=== PATIENT | male | born 1970 | race Caucasian/White ===

== ENCOUNTER 2019-06-15 16:02 | Emergency (ER) | payer MEDICAID, SELFPAY ==
[2019-06-15 16:03] VITALS: BP 121/71; PULSE 123; RESP 20; TEMP 36.2; O2SAT 97; BMI 55.8
--- NOTE | 2019-06-15 16:14 | ED.VIS.GEN ---
History of Present Illness Chief Complaint: Laceration Onset: Today Narrative: Patient presents to the ED with laceration to the medial aspect of his right ankle. About 45 minutes prior to arrival he was attempting to make a tool with a multifocal button grinder when part of it broke off and fell into his sock. He did wrap the laceration prior to arrival. Tetanus status is unknown. He denies any other injury. Past Medical History - Allergies and Home Meds Allergies/Adverse Reactions: Allergies Penicillins Allergy (Verified 06/15/19 16:02) Hives Primary Care Physician: Jordan Castellanos MD [Primary Care Provider] - Smoking Status: Never smoker Review of Systems General: Denies: Chills, Fever, Sweats Eyes: Denies: Visual changes - bilaterally, Diplopia ENT: Denies: Rhinorrhea, Sore throat Cardiovascular: Denies: Chest pain, Palpitations Respiratory: Denies: Dyspnea, Cough, Dyspnea on exertion Gastrointestinal: Denies: Abdominal pain, Nausea, Vomiting, Diarrhea, Melena, Hematochezia Genitourinary: Denies: Dysuria, Hematuria, Frequency Musculoskeletal: Denies: Back pain, Extremity Pain Skin: Reports: Wounds. Denies: Rash Neurological: Denies: Headache, Weakness, Numbness Physical Exam Vital Signs/Narrative: Vital Signs Temp Pulse Resp BP Pulse Ox 06/15/19 16:03 97.2 F L 123 H 20 H 121/71 H 97 General: Well nourished, Well developed, No Acute Distress Head: Normocephalic, Atraumatic Eyes: Perrl, EOMI ENT: Moist mucous membranes, No rhinorrhea Neck: Supple, Nontender Cardiovascular: Regular rate, Regular rhythm, No murmurs Respiratory: No distress, CTA bilaterally, Chest nontender Abdomen: Soft, Nontender, Nondistended, Normal bowel sounds Back: Nontender, Normal Inspection Extremities: Nontender, No edema Skin: Normal color, No rash, - - There is a vertical laceration to the medial aspect of the right ankle. Several flecks of metal dust within the wound. Slow bleeding. Superficial abrasion noted just proximal to the laceration. Full right ankle and foot range of motion. DP and PT pulses 2+ normal capillary refill. Normal sensation. Neurological: Alert, Oriented x3, Cranial nerves II-XII grossly intact, Normal Strength, Normal Sensation Psychological: Normal affect, Normal Mood Diagnostic/Tx/Re-eval - Medical Decision Making Patient presents to the ED with 4 cm laceration to his right ankle that occurred 45 minutes prior to arrival. No active bleeding. There are small flecks of metal dust in the wound. After reviewing with patient, suture repair was elected. Tetanus was updated. Procedure note: Area was cleansed with Betadine. 1% lidocaine with epinephrine was locally infiltrated into the wound. Approximately 8 mL. Wound was copiously irrigated with normal saline and foreign bodies were removed. Laceration was repaired with 4-0 nylon suture. 5 sutures were placed. Patient tolerated procedure well. Patient was taken on proper wound care. He was educated on when to have sutures removed. Vascular symptoms to return to the ED. He is provided discharge instructions. He is agreeable to plan. Impression: Right distal lower extremity laceration. Disposition: Home stable ED Disposition - Plan for ED Patient: Disposition: Home or Assisted Living Diagnosis: Laceration Instructions: LACERATION, All Referrals: Jordan Castellanos MD [Primary Care Provider] -
[2019-06-15] MEDS: Diphth,Pertuss(Acell),Tet Vac 0.5 ML Vial IM (17:24)
== END 2019-06-15 17:35 | disposition home or self-care (01) ==
PROVIDERS: Emergency Provider Physician Assistant; Family Provider Family Medicine; PCP Family Medicine
DX: S91.021A Laceration with foreign body, right ankle, initial encounter (principal); S90.511A Abrasion, right ankle, initial encounter; X58.XXXA Exposure to other specified factors, initial encounter; Y93.9 Activity, unspecified; Y92.9 Unspecified place or not applicable
CPT/HCPCS: 12002; 90471; 90715; 99283

== ENCOUNTER 2019-07-27 08:20 | Outpatient (RCR) | payer MEDICAID, SELFPAY ==
[2019-07-27 08:32] VITALS: TEMP 36.6; BMI 55.8
--- NOTE | 2019-07-27 10:30 | HP.PCM_ITS ---
(1) Dehiscence of surgical wound Status: Acute Current Visit: Yes Code(s): T81.31XA - Disruption of external operation (surgical) wound, not elsewhere classified, initial encounter (2) Traumatic open wound of right lower leg with delayed healing Status: Acute Current Visit: Yes Code(s): S81.801D - Unspecified open wound, right lower leg, subsequent encounter History of Present Illness Date of Service: 07/27/19 Chief Complaint: Follow-up dehisced wound right ankle History of Wound: 49-year-old white male that was working in his garage using a grinder set up operator and it caught his right lower ankle and caused a rather large laceration on 06/15/2019. Seen in the emergency room and had stitches but the wound dehisced and has had an open area ever since. History of infection was treated with antibiotics we will recheck today. Past Medical History Past Medical History: Laceration to right lower leg nonhealing dehisced wound Allergies/Adverse Reactions: Allergies Penicillins Allergy (Verified 06/15/19 16:02) Hives Home Medications: Ambulatory Orders Medication Instructions Recorded Albuterol IH (ProAir) [Proair Hfa] 2 puff INHALATION Q4H PRN PRN 12/07/13 Beclomethasone Diprop Inhaler 1 puff INHALATION BID 12/07/13 [Qvar 80 Mcg Inhaler] Cetirizine HCl [Zyrtec] 10 mg PO DAILY 12/07/13 Diclofenac [Voltaren] 75 mg PO BIDCM 12/07/13 Fluticasone 0.05% [Flonase Nasal 2 spray NASAL DAILY 12/07/13 [place]] Hydrocodone/Acetaminophen 1 each PO TID PRN PRN 12/07/13 [Hydrocodon-Acetaminophn 10-325] Lisinopril/Hydrochlorothiazide 1 tablet PO DAILY 12/07/13 [Zestoretic 20/25 Tablet] Omeprazole [Prilosec] 20 mg PO DAILY 12/07/13 Vitamin C 500 mg PO DAILY 12/07/13 Lives: Spouse/ Significant Other Smoking Status: Never smoker Review of Systems Constitutional: Denies: Chills, Fever Eyes: Denies: Blurred vision, Drainage, Pain HEENT: Denies: Difficulty Hearing, Difficulty Swallowing, Sore Throat, Visual Changes Cardiovascular: Denies: Chest Pain, Palpitations, Syncope Respiratory: Denies: Cough, Shortness of Breath Gastrointestinal: Denies: Abdominal Pain, Nausea, Vomiting Genitourinary: Denies: Dysuria, Frequency Musculoskeletal: Denies: Joint Pain, Muscle pain Skin: Reports: - - Right ankle dehisced wound. Denies: Jaundice, Rash Neurological: Denies: Balance problems, Change in Speech, Difficulty swallowing, Focal weakness Psychiatric: Denies: Anxiety, Depression Endocrine: Denies: Change in Body Habitus Hematologic/ Lymphatic: Denies: Adenopathy - Physical Exam Vital Signs Temp 97.8 F 07/27/19 08:32 General: Oriented x3, Cooperative, Well developed HEENT: Atraumatic, PERRLA Oral: Moist Mucosa Neck: Supple, No JVD Lungs: Clear to auscultation, Normal air movement Cardiovascular: Regular rate, Regular Rhythm Abdomen: Bowel Sounds Present, Soft, Non Tender, No Hepato-splenomegaly Extremities: No clubbing, No edema Skin: Ulcer/ Wound Wound Measurements and Assessment WC - Nurse 1 - General Ulcer Measurement Start: 07/27/19 08:23 Freq: Status: Active Protocol: Activity Type Activity Date Activity User E-Sign Co-Sign Detail Recorded Client Recorded Date Recorded By Document 07/27/19 08:32 DV [id number] 07/27/19 09:04 DV 07/27/19 08:32 Wound Center Nurse 1 [Ulcer Assessment] #1 Medial RLE -Combined with other wound No -Current Size (cm) - Length 3.0 -Current Size (cm) - Width 0.7 -Current Size (cm) - Depth 0.4 -Total Square Cm 2.10 -Date of Last Picture (Recall this 07/27/19 field) -Photo Taken Yes -Epithelialization None Present -Tunneling No -Undermining/Tunneling No -Circular Undermining No -Classification - Thickness Full Thickness without Exposed Support Structure -Exudate Amt Medium -Exudate Type Serous -Wound Margin Indistinct, Non -Visible -Granulation Amt None Present (0 %) -Granulation Quality N/A -Slough/Fibrin Yes -Necrosis Amt Large (67-100%) -Necrotic Tissue Type Eschar -Structure Exposed None/Limited to Skin Breakdown -Texture (Joselyn-wound Skin Appearance) Assessed, Scarring -Moisture (Joselyn-wound Skin Appearance Assessed,Dry/ ) Scaly -Color (Joselyn-wound Skin Appearance) Assessed, Erythema -Temperature (Joselyn-wound Skin No Abnormality Appearance) (Pt Warm) -Tenderness on Palpation (Joselyn-wound No Skin Appearance) -Ulcer Cleansing soap -Foul Odor after Cleansing No -Anesthetic Used 5% Lidocaine Gel [Edema Assessment] -Lower Limb Edema Present No -Right Calf (cm) 5.0 -Right Ankle (cm) 28.6 WC - Nurse 2 - General Ulcer CM Notes Start: 07/27/19 08:23 Freq: Status: Active Protocol: Activity Type Activity Date Activity User E-Sign Co-Sign Detail Recorded Client Recorded Date Recorded By Document 07/27/19 09:22 MW [id number] 07/27/19 09:27 MW 07/27/19 09:22 Wound Center Nurse 2 [Procedure/Treatment] #1 Medial RLE -Time 09:23 -Correct Patient Yes -Correct Side, Site, Position Yes -Correct Procedure Yes -Procedure Performed Yes -Type of Procedure Debridement -Clinical Debridement Subcutaneous -Post Debridement Size (cm) - Length 0.9 -Post Debridement Size (cm) - Width 0.4 -Post Debridement Size (cm) - Depth 0.5 -Total Square Cm 0.36 -Wound/Ulcer Outcome Not Healed -Ulcer Cleansing Rinsed/ Irrigated with Saline -Foul Odor after Cleansing No -Bioengineered Tissue No -Bleeding Controlled with Pressure -Offloading No -Treatment Response Procedure Tolerated Well [See Physician Procedure note for Specifics] Pain Scale: 0-10 Numeric [Pain] -Is Patient Pain Free? Yes Musculoskeletal: No Tenderness to Palpation of Joints or Extremities Lymphatic: No Cervical, Supraclavicular, or Inguinal Adenopathy Neurological: Cranial nerves II-XII grossly intact, Neuro grossly intact Psych/Mental Status: Normal Affect, Appropriate Debridement Note Post-Debridement Measurements/Treatment WC - Nurse 2 - General Ulcer CM Notes Start: 07/27/19 08:23 Freq: Status: Active Protocol: Activity Type Activity Date Activity User E-Sign Co-Sign Detail Recorded Client Recorded Date Recorded By Document 07/27/19 09:22 MW [id number] 07/27/19 09:27 MW 07/27/19 09:22 Wound Center Nurse 2 #1 Medial RLE -Time 09:23 -Correct Patient Yes -Correct Side, Site, Position Yes -Correct Procedure Yes -Procedure Performed Yes -Type of Procedure Debridement -Clinical Debridement Subcutaneous -Post Debridement Size (cm) - Length 0.9 -Post Debridement Size (cm) - Width 0.4 -Post Debridement Size (cm) - Depth 0.5 -Total Square Cm 0.36 -Wound/Ulcer Outcome Not Healed -Ulcer Cleansing Rinsed/ Irrigated with Saline -Foul Odor after Cleansing No -Bioengineered Tissue No -Bleeding Controlled with Pressure -Offloading No -Treatment Response Procedure Tolerated Well Pain Scale: 0-10 Numeric Is Patient Pain Free? Yes Wound debrided: Right medial ankle dehisced wound Type of Debridement: Excisional debridement Anesthesia Used: 5% Lidocaine Gel Depth: Down to and including healthy tissue, in the subcutaneous layer Percentage of wound debrided: 100 Instrument Used: 3mm curette Tissue Removed: Devitalized tissue and fibrin Severity: Limited To Skin Breakdown Bleeding Controlled with: Compression and gauze Patient tolerated procedure well Assessment/Plan Active Problems Dehiscence of surgical wound (Acute) Traumatic open wound of right lower leg with delayed healing (Acute) Assessment: Traumatic right lower lower leg laceration. Dehisced wound from sutures. Nonhealing infected ankle wound Plan: Wash the right lower leg with Hibiclens. Pack Aquacel extra moistened cover with Adaptic then dressing. Double layer Tubigrip. Follow up in 2 weeks
== END 2019-08-09 23:59 ==
LOC: WC 08:20
PROVIDERS: Family Provider Family Medicine; PCP Family Medicine; Referring Provider Nurse Practitioner; Visit Provider Nurse Practitioner
DX: T81.31XA Disruption of external operation (surgical) wound, not elsewhere classified, initial encounter (principal); Y83.8 Other surgical procedures as the cause of abnormal reaction of the patient, or of later complication, without mention of misadventure at the time of the procedure; S81.811S Laceration without foreign body, right lower leg, sequela; W31.89XS Contact with other specified machinery, sequela
CPT/HCPCS: 11042; 87070; 87075; 87077; 87186; 87205; 99213; G0463

== ENCOUNTER 2019-09-05 08:45 | Outpatient (RCR) | payer MEDICAID, SELFPAY ==
[2019-08-10 01:30] VITALS: TEMP 36.6
[2019-08-10 08:11] VITALS: BP 155/90; PULSE 94; RESP 18; TEMP 37; BMI 55.8
--- NOTE | 2019-08-10 10:38 | PN.PCM_ITS ---
(1) Dehiscence of surgical wound Status: Acute Current Visit: Yes Code(s): T81.31XA - Disruption of external operation (surgical) wound, not elsewhere classified, initial encounter (2) Traumatic open wound of right lower leg with delayed healing Status: Acute Current Visit: Yes Code(s): S81.801D - Unspecified open wound, right lower leg, subsequent encounter Type of Wound Date of Service: 08/10/19 Chief Complaint: Follow-up dehisced wound right ankle History of Wound: 49-year-old white male that was working in his garage using a white lead grinder and it caught his right lower ankle and caused a rather large laceration on 06/15/2019. Seen in the emergency room and had stitches but the wound dehisced and has had an open area ever since. History of infection was treated with antibiotics we will recheck today. Progress of Wound: Cultures came back positive patient has been on Levaquin and is almost done wound appears clean and smaller now but still has depth and looks more like a puncture wound. Surrounding skin looks good no infection noted but he is having some pain only with walking on it - Physical Exam Vital Signs Temp Pulse Resp BP 98.6 F 94 18 155/90 H 08/10/19 08:11 08/10/19 08:11 08/10/19 08:11 08/10/19 08:11 General: Oriented x3, Cooperative, Well developed HEENT: Atraumatic, PERRLA Oral: Moist Mucosa Neck: Supple, No JVD Lungs: Clear to auscultation, Normal air movement Cardiovascular: Regular rate, Regular Rhythm Abdomen: Bowel Sounds Present, Soft, Non Tender, No Hepato-splenomegaly Extremities: No clubbing, No edema Skin: Ulcer/ Wound - Right inner ankle laceration/dehisced sutures Wound Measurements and Assessment WC - Nurse 1 - General Ulcer Measurement Start: 08/10/19 08:08 Freq: Status: Active Protocol: Activity Type Activity Date Activity User E-Sign Co-Sign Detail Recorded Client Recorded Date Recorded By Document 08/10/19 08:11 DV [id number] 08/10/19 08:28 DV 08/10/19 08:11 Wound Center Nurse 1 [Ulcer Assessment] #1 Medial RLE -Combined with other wound No -Current Size (cm) - Length 0.6 -Current Size (cm) - Width 0.5 -Current Size (cm) - Depth 0.4 -Total Square Cm 0.30 -Photo Taken No -Epithelialization Small 1-33% -Tunneling No -Undermining/Tunneling No -Circular Undermining No -Exudate Amt Small -Exudate Type Serosanguineous -Wound Margin Fibrotic Scar, Thickened Scar -Granulation Amt None Present (0 %) -Granulation Quality N/A -Slough/Fibrin Yes -Necrosis Amt Medium (34-66%) -Necrotic Tissue Type Adherent Slough -Structure Exposed None/Limited to Skin Breakdown -Texture (Joselyn-wound Skin Appearance) Assessed, Scarring -Moisture (Joselyn-wound Skin Appearance Assessed, ) Weeping -Color (Joselyn-wound Skin Appearance) Assessed, Erythema -Temperature (Joselyn-wound Skin No Abnormality Appearance) (Pt Warm) -Ulcer Cleansing Rinsed/ Irrigated with Saline -Foul Odor after Cleansing No -Anesthetic Used 4% Lidocaine Solution WC - Nurse 2 - General Ulcer CM Notes Start: 08/10/19 08:08 Freq: Status: Active Protocol: Activity Type Activity Date Activity User E-Sign Co-Sign Detail Recorded Client Recorded Date Recorded By Document 08/10/19 09:02 MW [id number] 08/10/19 09:04 MW 08/10/19 09:02 Wound Center Nurse 2 [Procedure/Treatment] -Time 09:03 -Correct Patient Yes -Correct Side, Site, Position Yes -Correct Procedure Yes -Procedure Performed Yes -Type of Procedure Debridement -Clinical Debridement Subcutaneous -Post Debridement Size (cm) - Length 0.7 -Post Debridement Size (cm) - Width 0.4 -Post Debridement Size (cm) - Depth 0.4 -Total Square Cm 0.28 -Wound/Ulcer Outcome Not Healed -Ulcer Cleansing Rinsed/ Irrigated with Saline -Foul Odor after Cleansing No -Bioengineered Tissue No -Bleeding Controlled with Pressure -Offloading No -Treatment Response Procedure Tolerated Well [See Physician Procedure note for Specifics] Pain Scale: 0-10 Numeric [Pain] -Is Patient Pain Free? Yes Musculoskeletal: No Tenderness to Palpation of Joints or Extremities Lymphatic: No Cervical, Supraclavicular, or Inguinal Adenopathy Neurological: Cranial nerves II-XII grossly intact, Neuro grossly intact Psych/Mental Status: Normal Affect, Appropriate Debridement Note Post-Debridement Measurements/Treatment WC - Nurse 2 - General Ulcer CM Notes Start: 08/10/19 08:08 Freq: Status: Active Protocol: Activity Type Activity Date Activity User E-Sign Co-Sign Detail Recorded Client Recorded Date Recorded By Document 08/10/19 09:02 MW [id number] 08/10/19 09:04 MW 08/10/19 09:02 Wound Center Nurse 2 #1 Medial RLE -Time 09:03 -Correct Patient Yes -Correct Side, Site, Position Yes -Correct Procedure Yes -Procedure Performed Yes -Type of Procedure Debridement -Clinical Debridement Subcutaneous -Post Debridement Size (cm) - Length 0.7 -Post Debridement Size (cm) - Width 0.4 -Post Debridement Size (cm) - Depth 0.4 -Total Square Cm 0.28 -Wound/Ulcer Outcome Not Healed -Ulcer Cleansing Rinsed/ Irrigated with Saline -Foul Odor after Cleansing No -Bioengineered Tissue No -Bleeding Controlled with Pressure -Offloading No -Treatment Response Procedure Tolerated Well Pain Scale: 0-10 Numeric Is Patient Pain Free? Yes Wound debrided: Inner ankle Type of Debridement: Excisional debridement Anesthesia Used: 4% Lidocaine Solution, 5% Lidocaine Gel Depth: Down to and including healthy tissue, in the subcutaneous layer Percentage of wound debrided: 100 Instrument Used: 5mm curette Tissue Removed: Fibrin Severity: Limited To Skin Breakdown Amount of bleeding with debridement: Mild Bleeding Controlled with: Compression and gauze Patient tolerated procedure well Assessment/Plan Active Problems Dehiscence of surgical wound (Acute) Traumatic open wound of right lower leg with delayed healing (Acute) Assessment: Traumatic right lower lower leg laceration. Dehisced wound from sutures. Nonhealing infected ankle wound Plan: Wash the right lower leg with Hibiclens. Pack with Promogran then cover with Adaptic gauze and tape. Double layer Tubigrip. Follow up in 1 weeks
[2019-08-17 08:13] VITALS: BP 155/72; RESP 18; TEMP 36.9; BMI 55.8
--- NOTE | 2019-08-17 08:57 | PN.PCM_ITS ---
(1) Dehiscence of surgical wound Status: Acute Current Visit: Yes Code(s): T81.31XA - Disruption of external operation (surgical) wound, not elsewhere classified, initial encounter (2) Traumatic open wound of right lower leg with delayed healing Status: Acute Current Visit: Yes Code(s): S81.801D - Unspecified open wound, right lower leg, subsequent encounter Type of Wound Date of Service: 08/17/19 Chief Complaint: Follow-up dehisced wound right ankle History of Wound: 49-year-old white male that was working in his garage using a cutter grinder and it caught his right lower ankle and caused a rather large laceration on 06/15/2019. Seen in the emergency room and had stitches but the wound dehisced and has had an open area ever since. History of infection was treated with antibiotics we will recheck today. Progress of Wound: Cultures came back positive patient has been on Levaquin and is almost done wound appears clean and smaller now but still has depth and looks more like a puncture wound. Surrounding skin looks good no infection noted but he is having some pain only with walking on it. We will apply for pure applied to finish off the wound for healing - Physical Exam Vital Signs Temp Pulse Resp BP 98.4 F 94 18 155/72 H 08/17/19 08:13 08/10/19 08:11 08/17/19 08:13 08/17/19 08:13 General: Oriented x3, Cooperative, Well developed HEENT: Atraumatic, PERRLA Oral: Moist Mucosa Neck: Supple, No JVD Lungs: Clear to auscultation, Normal air movement Cardiovascular: Regular rate, Regular Rhythm Abdomen: Bowel Sounds Present, Soft, Non Tender, No Hepato-splenomegaly Extremities: No clubbing, No edema Skin: Ulcer/ Wound - Dehisced surgical wound of the right medial ankle Wound Measurements and Assessment WC - Nurse 1 - General Ulcer Measurement Start: 08/10/19 08:08 Freq: Status: Active Protocol: Activity Type Activity Date Activity User E-Sign Co-Sign Detail Recorded Client Recorded Date Recorded By Document 08/17/19 08:13 [id number] 08/17/19 08:31 08/17/19 08:13 Wound Center Nurse 1 [Ulcer Assessment] #1 Medial RLE -Combined with other wound No -Current Size (cm) - Length 0.7 -Current Size (cm) - Width 0.3 -Current Size (cm) - Depth 0.1 -Total Square Cm 0.21 -Photo Taken No -Circular Undermining No -Classification - Thickness Partial Thickness -Exudate Amt None Present -Wound Margin Distinct, Outline Attached -Granulation Amt Small (1-33%) -Granulation Quality Pale -Slough/Fibrin Yes -Necrosis Amt Small (1-33%) -Necrotic Tissue Type Adherent Slough -Structure Exposed None/Limited to Skin Breakdown -Texture (Joselyn-wound Skin Appearance) No Abnormality -Moisture (Joselyn-wound Skin Appearance No Abnormality ) -Color (Joselyn-wound Skin Appearance) No Abnormality -Temperature (Joselyn-wound Skin No Abnormality Appearance) (Pt Warm) -Tenderness on Palpation (Joselyn-wound Yes Skin Appearance) -Ulcer Cleansing soap and water -Foul Odor after Cleansing No -Anesthetic Used 5% Lidocaine Gel [Edema Assessment] -Lower Limb Edema Present Yes -Right Calf (cm) 48 -Right Ankle (cm) 28.4 WC - Nurse 2 - General Ulcer CM Notes Start: 08/10/19 08:08 Freq: Status: Active Protocol: Activity Type Activity Date Activity User E-Sign Co-Sign Detail Recorded Client Recorded Date Recorded By Document 08/17/19 08:44 MW [id number] 08/17/19 08:51 MW 08/17/19 08:44 Wound Center Nurse 2 [Procedure/Treatment] #1 [facility] -Time 08:45 -Correct Patient Yes -Correct Side, Site, Position Yes -Correct Procedure Yes -Procedure Performed Yes -Type of Procedure Debridement -Clinical Debridement Subcutaneous -Post Debridement Size (cm) - Length 0.5 -Post Debridement Size (cm) - Width 0.3 -Post Debridement Size (cm) - Depth 0.3 -Total Square Cm 0.15 -Wound/Ulcer Outcome Not Healed -Ulcer Cleansing Rinsed/ Irrigated with Saline -Foul Odor after Cleansing No -Bioengineered Tissue No -Bleeding Controlled with Pressure -Offloading No -Treatment Response Procedure Tolerated Well [See Physician Procedure note for Specifics] Pain Scale: 0-10 Numeric [Pain] -Is Patient Pain Free? Yes Musculoskeletal: No Tenderness to Palpation of Joints or Extremities Lymphatic: No Cervical, Supraclavicular, or Inguinal Adenopathy Neurological: Cranial nerves II-XII grossly intact, Neuro grossly intact Psych/Mental Status: Normal Affect, Appropriate Debridement Note Post-Debridement Measurements/Treatment WC - Nurse 2 - General Ulcer CM Notes Start: 08/10/19 08:08 Freq: Status: Active Protocol: Activity Type Activity Date Activity User E-Sign Co-Sign Detail Recorded Client Recorded Date Recorded By Document 08/10/19 09:02 MW [id number] 08/10/19 09:04 MW Document 08/17/19 08:44 MW [id number] 08/17/19 08:51 MW 08/10/19 08/17/19 09:02 08:44 Wound Center Nurse 2 #1 Medial RLE -Time 09:03 08:45 -Correct Patient Yes Yes -Correct Side, Site, Position Yes Yes -Correct Procedure Yes Yes -Procedure Performed Yes Yes -Type of Procedure Debridement Debridement -Clinical Debridement Subcutaneous Subcutaneous -Post Debridement Size (cm) - Length 0.7 0.5 -Post Debridement Size (cm) - Width 0.4 0.3 -Post Debridement Size (cm) - Depth 0.4 0.3 -Total Square Cm 0.28 0.15 -Wound/Ulcer Outcome Not Healed Not Healed -Ulcer Cleansing Rinsed/ Rinsed/ Irrigated with Irrigated with Saline Saline -Foul Odor after Cleansing No No -Bioengineered Tissue No No -Bleeding Controlled with Pressure Pressure -Offloading No No -Treatment Response Procedure Procedure Tolerated Well Tolerated Well Pain Scale: 0-10 Numeric Is Patient Pain Free? Yes Yes Wound debrided: Right medial ankle Type of Debridement: Excisional debridement Anesthesia Used: 5% Lidocaine Gel Depth: Down to and including healthy tissue Percentage of wound debrided: 100 Instrument Used: 3mm curette Tissue Removed: Fibrin Severity: Limited To Skin Breakdown Amount of bleeding with debridement: Mild Bleeding Controlled with: Pressure Patient tolerated procedure well Assessment/Plan Active Problems Dehiscence of surgical wound (Acute) Traumatic open wound of right lower leg with delayed healing (Acute) Assessment: Traumatic right lower lower leg laceration. Dehisced wound from sutures. Nonhealing infected ankle wound Plan: Wash the right lower leg with Hibiclens. Pack with Promogran then cover with Adaptic gauze and tape. Double layer Tubigrip. Follow up in 1 weeks
[2019-08-22 08:48] VITALS: BP 141/84; PULSE 80; RESP 18; TEMP 36.5; BMI 55.8
--- NOTE | 2019-08-22 09:11 | PCM.WC.PN ---
(1) Dehiscence of surgical wound Status: Acute Current Visit: Yes Code(s): T81.31XA - Disruption of external operation (surgical) wound, not elsewhere classified, initial encounter (2) Traumatic open wound of right lower leg with delayed healing Status: Acute Current Visit: Yes Code(s): S81.801D - Unspecified open wound, right lower leg, subsequent encounter Type of Wound Date of Service: 08/22/19 Chief Complaint: Follow-up dehisced wound right ankle History of Wound: 49-year-old white male that was working in his garage using a bench grinder and it caught his right lower ankle and caused a rather large laceration on 06/15/2019. Seen in the emergency room and had stitches but the wound dehisced and has had an open area ever since. History of infection was treated with antibiotics we will recheck today. Progress of Wound: Cultures came back positive patient was treated with Levaquin and tolerated well. Since we have treated him with the Levaquin the wound seems to be closing quickly still has a small opening but more like a divot today. Surrounding skin looks good no infection noted patient states no pain. We will apply for pure applied to finish off the wound for healing - Physical Exam Vital Signs Temp Pulse Resp BP 97.7 F L 80 18 141/84 H 08/22/19 08:48 08/22/19 08:48 08/22/19 08:48 08/22/19 08:48 General: Oriented x3, Cooperative, Well developed HEENT: Atraumatic, PERRLA Oral: Moist Mucosa Neck: Supple, No JVD Lungs: Clear to auscultation, Normal air movement Cardiovascular: Regular rate, Regular Rhythm Abdomen: Bowel Sounds Present, Soft, Non Tender, No Hepato-splenomegaly Extremities: No clubbing, No edema, - - Right lower ankle dehisced surgical wound Wound Measurements and Assessment WC - Nurse 1 - General Ulcer Measurement Start: 08/10/19 08:08 Freq: Status: Active Protocol: Activity Type Activity Date Activity User E-Sign Co-Sign Detail Recorded Client Recorded Date Recorded By Document 08/22/19 08:48 RB [id number] 08/22/19 08:58 RB 08/22/19 08:48 Wound Center Nurse 1 [Ulcer Assessment] #1 Medial RLE -Combined with other wound No -Current Size (cm) - Length 0.3 -Current Size (cm) - Width 0.6 -Current Size (cm) - Depth 0.2 -Total Square Cm 0.18 -Tunneling No -Undermining/Tunneling No -Circular Undermining No -Exudate Amt Small -Exudate Type Serosanguineous -Wound Margin Distinct, Outline Attached -Granulation Amt Medium (34-66%) -Granulation Quality [place] -Slough/Fibrin Yes -Necrosis Amt Small (1-33%) -Necrotic Tissue Type Adherent Slough -Structure Exposed N/A -Texture (Joselyn-wound Skin Appearance) Assessed -Moisture (Joselyn-wound Skin Appearance Assessed ) -Color (Joselyn-wound Skin Appearance) Assessed -Temperature (Joselyn-wound Skin No Abnormality Appearance) (Pt Warm) -Tenderness on Palpation (Joselyn-wound No Skin Appearance) -Ulcer Cleansing Wound Cleanser -Foul Odor after Cleansing No -Anesthetic Used 5% Lidocaine Gel [Edema Assessment] -Lower Limb Edema Present Yes -Right Calf (cm) 50 -Right Ankle (cm) 27.2 WC - Nurse 2 - General Ulcer CM Notes Start: 08/10/19 08:08 Freq: Status: Active Protocol: Activity Type Activity Date Activity User E-Sign Co-Sign Detail Recorded Client Recorded Date Recorded By Document 08/22/19 09:06 MW [id number] 08/22/19 09:08 MW 08/22/19 09:06 Wound Center Nurse 2 [Procedure/Treatment] #1 [facility] -Time 09:06 -Correct Patient Yes -Correct Side, Site, Position Yes -Correct Procedure Yes -Procedure Performed Yes -Type of Procedure Debridement -Clinical Debridement Subcutaneous -Post Debridement Size (cm) - Length 1.2 -Post Debridement Size (cm) - Width 0.3 -Post Debridement Size (cm) - Depth 0.2 -Total Square Cm 0.36 -Wound/Ulcer Outcome Not Healed -Ulcer Cleansing Rinsed/ Irrigated with Saline -Foul Odor after Cleansing No -Bioengineered Tissue No -Bleeding Controlled with Pressure -Offloading No -Treatment Response Procedure Tolerated Well [See Physician Procedure note for Specifics] Pain Scale: 0-10 Numeric [Pain] -Is Patient Pain Free? Yes Musculoskeletal: No Tenderness to Palpation of Joints or Extremities Lymphatic: No Cervical, Supraclavicular, or Inguinal Adenopathy Neurological: Cranial nerves II-XII grossly intact, Neuro grossly intact Psych/Mental Status: Normal Affect, Appropriate Debridement Note Post-Debridement Measurements/Treatment WC - Nurse 2 - General Ulcer CM Notes Start: 08/10/19 08:08 Freq: Status: Active Protocol: Activity Type Activity Date Activity User E-Sign Co-Sign Detail Recorded Client Recorded Date Recorded By Document 08/10/19 09:02 MW [id number] 08/10/19 09:04 MW Document 08/17/19 08:44 MW [id number] 08/17/19 08:51 MW Document 08/22/19 09:06 MW [id number] 08/22/19 09:08 MW 08/10/19 08/17/19 08/22/19 09:02 08:44 09:06 Wound Center Nurse 2 #1 Medial RLE -Time 09:03 08:45 09:06 -Correct Patient Yes Yes Yes -Correct Side, Site, Position Yes Yes Yes -Correct Procedure Yes Yes Yes -Procedure Performed Yes Yes Yes -Type of Procedure Debridement Debridement Debridement -Clinical Debridement Subcutaneous Subcutaneous Subcutaneous -Post Debridement Size (cm) - Length 0.7 0.5 1.2 -Post Debridement Size (cm) - Width 0.4 0.3 0.3 -Post Debridement Size (cm) - Depth 0.4 0.3 0.2 -Total Square Cm 0.28 0.15 0.36 -Wound/Ulcer Outcome Not Healed Not Healed Not Healed -Ulcer Cleansing Rinsed/ Rinsed/ Rinsed/ Irrigated with Irrigated with Irrigated with Saline Saline Saline -Foul Odor after Cleansing No No No -Bioengineered Tissue No No No -Bleeding Controlled with Pressure Pressure Pressure -Offloading No No No -Treatment Response Procedure Procedure Procedure Tolerated Well Tolerated Well Tolerated Well Pain Scale: 0-10 Numeric Is Patient Pain Free? Yes Yes Yes Wound debrided: Lower extremity surgical wound Laterality: Right Type of Debridement: Excisional debridement Anesthesia Used: 5% Lidocaine Gel Depth: Down to and including healthy tissue, in the subcutaneous layer Percentage of wound debrided: 100 Instrument Used: 3mm curette Tissue Removed: Fibrin and some slough Severity: Limited To Skin Breakdown Bleeding Controlled with: Pressure Patient tolerated procedure well Assessment/Plan Active Problems Dehiscence of surgical wound (Acute) Traumatic open wound of right lower leg with delayed healing (Acute) Assessment: Traumatic right lower lower leg laceration. Dehisced wound from sutures. Nonhealing infected ankle wound Plan: Wash the right lower leg with Hibiclens. Pack with Promogran then cover with Adaptic gauze and tape. Double layer Tubigrip. Follow up in 2 weeks
[2019-09-05 09:13] VITALS: BP 168/108; PULSE 104; RESP 16; TEMP 36.4; BMI 55.8
--- NOTE | 2019-09-05 11:03 | PN.PCM_ITS ---
(1) Dehiscence of surgical wound Status: Acute Current Visit: Yes Code(s): T81.31XA - Disruption of external operation (surgical) wound, not elsewhere classified, initial encounter (2) Traumatic open wound of right lower leg with delayed healing Status: Acute Current Visit: Yes Code(s): S81.801D - Unspecified open wound, right lower leg, subsequent encounter Type of Wound Date of Service: 09/05/19 Chief Complaint: Follow-up dehisced wound right ankle History of Wound: 49-year-old white male that was working in his garage using a valve grinder and it caught his right lower ankle and caused a rather large laceration on 06/15/2019. Seen in the emergency room and had stitches but the wound dehisced and has had an open area ever since. History of infection was treated with antibiotics we will recheck today. Progress of Wound: Right medial lower ankle dehisced wound is now healed patient will be discharged from the wound center - Physical Exam Vital Signs Temp Pulse Resp BP 97.5 F L 104 H 16 168/108 H 09/05/19 09:13 09/05/19 09:13 09/05/19 09:13 09/05/19 09:13 General: Oriented x3, Cooperative, Well developed HEENT: Atraumatic, PERRLA Oral: Moist Mucosa Neck: Supple, No JVD Lungs: Clear to auscultation, Normal air movement Cardiovascular: Regular rate, Regular Rhythm Abdomen: Bowel Sounds Present, Soft, Non Tender, No Hepato-splenomegaly Extremities: No clubbing, No edema Wound Measurements and Assessment WC - Nurse 1 - General Ulcer Measurement Start: 08/10/19 08:08 Freq: Status: Active Protocol: Activity Type Activity Date Activity User E-Sign Co-Sign Detail Recorded Client Recorded Date Recorded By Document 09/05/19 09:13 [facility] [id number] 09/05/19 09:16 [facility] 09/05/19 09:13 Wound Center Nurse 1 [Ulcer Assessment] #1 Medial RLE -Combined with other wound No -Current Size (cm) - Length 0.1 -Current Size (cm) - Width 0.1 -Current Size (cm) - Depth 0.1 -Total Square Cm 0.01 -Photo Taken No -Epithelialization Large 67-100% -Texture (Joselyn-wound Skin Appearance) Assessed, Scarring -Moisture (Joselyn-wound Skin Appearance Assessed,Dry/ ) Scaly -Color (Joselyn-wound Skin Appearance) Assessed -Temperature (Joselyn-wound Skin No Abnormality Appearance) (Pt Warm) -Tenderness on Palpation (Joselyn-wound No Skin Appearance) -Ulcer Cleansing Rinsed/ Irrigated with Saline -Foul Odor after Cleansing No -Anesthetic Used 4% Lidocaine Solution WC - Nurse 2 - General Ulcer CM Notes Start: 08/10/19 08:08 Freq: Status: Active Protocol: Activity Type Activity Date Activity User E-Sign Co-Sign Detail Recorded Client Recorded Date Recorded By Document 09/05/19 09:23 MW [id number] 09/05/19 09:24 MW 09/05/19 09:23 Wound Center Nurse 2 [Procedure/Treatment] -Time 09:23 -Correct Patient Yes -Correct Side, Site, Position Yes -Correct Procedure Yes -Procedure Performed No -Post Debridement Size (cm) - Length 0 -Post Debridement Size (cm) - Width 0 -Post Debridement Size (cm) - Depth 0 -Total Square Cm 0 -Wound/Ulcer Outcome Healed- Epithelialized [See Physician Procedure note for Specifics] Musculoskeletal: No Tenderness to Palpation of Joints or Extremities Lymphatic: No Cervical, Supraclavicular, or Inguinal Adenopathy Neurological: Cranial nerves II-XII grossly intact, Neuro grossly intact Psych/Mental Status: Normal Affect, Appropriate, Alert and oriented to time, place, person, mood and affect Debridement Note Post-Debridement Measurements/Treatment WC - Nurse 2 - General Ulcer CM Notes Start: 08/10/19 08:08 Freq: Status: Active Protocol: Activity Type Activity Date Activity User E-Sign Co-Sign Detail Recorded Client Recorded Date Recorded By Document 08/10/19 09:02 MW [id number] 08/10/19 09:04 MW Document 08/17/19 08:44 MW [id number] 08/17/19 08:51 MW Document 08/22/19 09:06 MW [id number] 08/22/19 09:08 MW Document 09/05/19 09:23 MW [id number] 09/05/19 09:24 MW 08/10/19 08/17/19 08/22/19 09:02 08:44 09:06 Wound Center Nurse 2 #1 Medial RLE -Time 09:03 08:45 09:06 -Correct Patient Yes Yes Yes -Correct Side, Site, Position Yes Yes Yes -Correct Procedure Yes Yes Yes -Procedure Performed Yes Yes Yes -Type of Procedure Debridement Debridement Debridement -Clinical Debridement Subcutaneous Subcutaneous Subcutaneous -Post Debridement Size (cm) - Length 0.7 0.5 1.2 -Post Debridement Size (cm) - Width 0.4 0.3 0.3 -Post Debridement Size (cm) - Depth 0.4 0.3 0.2 -Total Square Cm 0.28 0.15 0.36 -Wound/Ulcer Outcome Not Healed Not Healed Not Healed -Ulcer Cleansing Rinsed/ Rinsed/ Rinsed/ Irrigated with Irrigated with Irrigated with Saline Saline Saline -Foul Odor after Cleansing No No No -Bioengineered Tissue No No No -Bleeding Controlled with Pressure Pressure Pressure -Offloading No No No -Treatment Response Procedure Procedure Procedure Tolerated Well Tolerated Well Tolerated Well Pain Scale: 0-10 Numeric Is Patient Pain Free? Yes Yes Yes 09/05/19 09:23 Wound Center Nurse 2 #1 [facility] RLE -Time 09:23 -Correct Patient Yes -Correct Side, Site, Position Yes -Correct Procedure Yes -Procedure Performed No -Type of Procedure -Clinical Debridement -Post Debridement Size (cm) - Length 0 -Post Debridement Size (cm) - Width 0 -Post Debridement Size (cm) - Depth 0 -Total Square Cm 0 -Wound/Ulcer Outcome Healed- Epithelialized -Ulcer Cleansing -Foul Odor after Cleansing -Bioengineered Tissue -Bleeding Controlled with -Offloading -Treatment Response Pain Scale: 0-10 Numeric Is Patient Pain Free? No debridement was completed today Assessment/Plan Active Problems Dehiscence of surgical wound (Acute) Traumatic open wound of right lower leg with delayed healing (Acute) Assessment: Traumatic right lower lower leg laceration resolved. Dehisced wound from sutures resolved. Nonhealing infected ankle wound resolved Plan: Discharge from the wound center follow-up as needed
== END 2019-09-08 23:59 ==
LOC: WC 08:45
PROVIDERS: Family Provider Family Medicine; PCP Family Medicine; Referring Provider Nurse Practitioner; Visit Provider Nurse Practitioner
DX: T81.31XA Disruption of external operation (surgical) wound, not elsewhere classified, initial encounter (principal); Y83.8 Other surgical procedures as the cause of abnormal reaction of the patient, or of later complication, without mention of misadventure at the time of the procedure; S91.01 Laceration without foreign body of ankle; W31.89XS Contact with other specified machinery, sequela
CPT/HCPCS: 11042; 99213; G0463

== ENCOUNTER → 2019-12-26 20:00 | Outpatient (CLI) | payer MEDICAID, SELFPAY | PROVIDERS: Family Provider Family Medicine; PCP Family Medicine; Referring Provider Family Medicine; Visit Provider Family Medicine | DX: G47.33 Obstructive sleep apnea (adult) (pediatric) (principal) | CPT/HCPCS: 95811 ==